=== PATIENT | female | born 1995 | race Caucasian/White ===

== ENCOUNTER 2023-10-02 10:35 | Outpatient (CLI) | payer MEDICAID, SELFPAY ==
[2023-10-02 15:17] LABS: Bacterial Vaginosis* Not Detected (No Detected); Candida glab/krus Not Detected (No Detected); Candida species Not Detected (No Detected); Trichomonas vaginalis Not Detected (No Detected)
[2023-10-02 16:21] LABS: Chlamydia DNA Amplified* Not Detected (No Detected); GC DNA Amplified* Not Detected (No Detected)
== END 2023-10-02 10:36 | disposition home or self-care (01) ==
PROVIDERS: PCP Family Medicine; Visit Provider Family Medicine
DX: R10.9 Unspecified abdominal pain (principal); N91.2 Amenorrhea, unspecified; Z12.4 Encounter for screening for malignant neoplasm of cervix
CPT/HCPCS: 81513; 87210; 87481; 87491; 87591; 87661

== ENCOUNTER 2025-07-09 09:38 | Outpatient (CLI) | payer MEDICAID, SELFPAY ==
[2025-07-09 10:03] VITALS: BP 106/66; PULSE 74
[2025-07-09 10:04] VITALS: RESP 17; TEMP 36.9
[2025-07-09 10:11] LABS: Amnisure Rom* Negative
== END 2025-07-09 10:30 | disposition home or self-care (01) ==
LOC: OB OUT 09:39 → OB 09:39
PROVIDERS: PCP Family Medicine; Visit Provider Family Medicine
DX: O47.02 False labor before 37 completed weeks of gestation, second trimester (principal); Z3A.19 19 weeks gestation of pregnancy
CPT/HCPCS: 84112; G0463